=== PATIENT | female | born 1945 | race Caucasian/White ===

== ENCOUNTER → 2017-07-15 | Day surgery (SDC) | payer OTHER ==
[~2017-07-15] MED LIST: AGGRENOX 25 MG1 EACH PO; ATIVAN 1MG TABLE1 MG PO; CLARITIN10 M2 PO; KLONOPIN TAB 00.5 MG PO; MONTELUKAST SOD10 MG PO; NASONEX17 GM; POTASSIUM CHLO10 MEQ PO; PREVACID 30 MG30 MG PO; PROAIR HFA8.5 GM INH; SIMVASTATIN10 MG PO; VITAMIN D250000 UNIT PO; ZANTAC150 MG PO
== END | disposition home or self-care (01) ==
LOC: OR 06:56
PROVIDERS: Internal Medicine Gastroenterology
PROC: 0DBE8ZZ Excision of Large Intestine, Via Natural or Artificial Opening Endoscopic (ICD-10-PCS; 2017-07-15)
PROC: 0DBL8ZZ Excision of Transverse Colon, Via Natural or Artificial Opening Endoscopic (ICD-10-PCS; 2017-07-15)
PROC: 0DBE8ZX Excision of Large Intestine, Via Natural or Artificial Opening Endoscopic, Diagnostic (ICD-10-PCS; 2017-07-15)
PROC: 0DBK8ZZ Excision of Ascending Colon, Via Natural or Artificial Opening Endoscopic (ICD-10-PCS; principal; 2017-07-15 09:00)
DX: D12.2 Benign neoplasm of ascending colon (principal); D12.3 Benign neoplasm of transverse colon; D12.6 Benign neoplasm of colon, unspecified; K57.30 Diverticulosis of large intestine without perforation or abscess without bleeding; K64.0 First degree hemorrhoids; J44.9 Chronic obstructive pulmonary disease, unspecified; M19.90 Unspecified osteoarthritis, unspecified site; F17.210 Nicotine dependence, cigarettes, uncomplicated; Z88.1 Allergy status to other antibiotic agents; Z88.0 Allergy status to penicillin; Z79.52 Long term (current) use of systemic steroids; Z79.899 Other long term (current) drug therapy
CPT/HCPCS: J7030